=== PATIENT | female | born 1965 | race African-American/Black ===

== ENCOUNTER 2019-07-04 11:23 | Inpatient (IN) | payer OTHER ==
[2019-07-04 14:33] VITALS: BMI 27.3
--- NOTE | 2019-07-04 15:58 | HP ---
COWS - Scale Resting Pulse: 1= [place] 81-100 Sweatin= Chills/Flushing Restless Observation: 1= Difficult to Sit Still Pupil Size: 1= Pupils >than Normal Bone or Joint Aches: 2= Severe Diffuse Aches Runny Nose/ Eye Tearin= Runny Nose/Eyes GI Upset > 30mins: 0= None Tremor Observation: 4= Gross Tremor/Twitching Yawning Observation: 2= >3x During Session Anxiety or Irritability: 1=Feels Anxious/Irritable Goose Flesh Skin: 0=Smooth Skin COWS Score: 15 CIWA Score Nausea/Vomitin-Mild Nausea/No Vomiting Muscle Tremors: 3 Anxiety: 3 Agitation: 1-Slight > Activity Paroxysmal Sweats: 2 Orientation: 2-Disoriented Date<2 days Tacttile Disturbances: 1-Very Mild Itch/Numbness Auditory Disturbances: 0-None Visual Disturbances: 0-None Headache: 0-None Present CIWA-Ar Total Score: 13 - Admission Criteria OAS Guidelines: Admission for Medically Managed Detox: Requires at least one of the followin. CIWA greater than 12 2. Seizures within the past 24 hours 3. Delirium tremens within the past 24 hours 4. Hallucinations within the past 24 hours 5. Acute intervention needed for co occurring medical disorder 6. Acute intervention needed for co occurring psychiatric disorder 7. Severe withdrawal that cannot be handled at a lower level of care (continued vomiting, continued diarrhea, abnormal vital signs) requiring intravenous medication and/or fluids 8. Patient presents the following: CIWA greater than 12 Admission Criteria Met: Admission criteria met Admission ROS [facility] Chief Complaint: Mitali Lenz is presenting for alcohol and opiate use detox. Allergies/Adverse Reactions: Allergies Allergy/AdvReac Type Severity Reaction Status Date / Time No Known Allergies Allergy Verified 07/04/19 14:21 History of Present Illness: Mitali Lenz is a 53 year old female presenting for alcohol and heroin withdrawal. Latest use of heroin was this morning. 4 bags per day. Has been using this amount for the last 6 months. Prior to this had been using more. Most use was 6- 7 bags. Never had overdose. Denies falls. When does not use has diarrhea, vomiting, sweating. Longest period of sobriety was 7-8 years. Denies IVDU. Only uses intranasally. Denies mixing drugs. Has been on methadone program in the past, not currently on program. 1 week ago was on methadone when [place]. Alcohol use, last use was morning of this admission. 2 40oz beers per day, occasional liquor. Denies seizures, blackouts. Has had fall and head hit with prior intoxication. Longest period of sobriety was 8 years. Has been this facility in the past. 3 times at this facility. 5th time in total. Has been to rehab once and completed. Previous detox 1-2 years prior, not at this facility. Not sure about current plans after detox. Will talk to counselor. Utox: + for MTD, MOP, FEN, OXY Medical History: asthma, HTN Meds: nifedipine, albutrol, symbicort, singulair Surgical: Social: house with daughter. unemployed. SSI Family: Mother [place], Father cirrhosis Smokin cigarettes per day, 15-16 years - Ebola screening Have you traveled outside of the country in the last 21 days: No (N) Have you had contact with anyone from an Ebola affected area: No Do you have a fever: No - Review of Systems Constitutional: Chills, Night Sweats EENT: reports: Other (rhinnorhea) Respiratory: reports: Cough, Wheezing Cardiac: reports: No Symptoms Reported GI: reports: Nausea, Poor Appetite : reports: No Symptoms Reported Musculoskeletal: reports: Muscle Pain Integumentary: reports: No Symptoms Reported Neuro: reports: Tingling Endocrine: reports: No Symptoms Reported Hematology: reports: No Symptoms Reported Psychiatric: reports: Judgement Intact, Agitated, Anxious Patient History - Patient Medical History Hx Anemia: No Hx Asthma: Yes (Pt is on MDI.) Hx Chronic Obstructive Pulmonary Disease (COPD): No Hx Cancer: No Hx Cardiac Disorders: No Hx Congestive Heart Failure: No Hx Hypertension: Yes Hx Hypercholesterolemia: No Hx Pacemaker: No HX Cerebrovascular Accident: No Hx Seizures: No Hx Dementia: No Hx Diabetes: No Hx Gastrointestinal Disorders: No Hx Liver Disease: No Hx Genitourinary Disorders: No Hx Sexually Transmitted Disorders: No Hx Renal Disease (ESRD): No Hx Thyroid Disease: No Hx Human Immunodeficiency Virus (HIV): No Hx Hepatitis C: No Hx Depression: Yes (on meds) Hx Suicide Attempt: No Hx Bipolar Disorder: Yes Hx Schizophrenia: No - Patient Surgical History Past Surgical History: Yes Hx Neurologic Surgery: No Hx Cataract Extraction: No Hx Cardiac Surgery: No Hx Lung Surgery: No Hx Breast Surgery: No Hx Breast Biopsy: No Hx Abdominal Surgery: No Hx Appendectomy: No Hx Cholecystectomy: No Hx Genitourinary Surgery: No Hx Section: Yes (1998) Hx Orthopedic Surgery: No Anesthesia Reaction: No - PPD History Previous Implant?: Yes Documented Results: Negative w/o proof Date: 06/10/16 PPD to be Administered?: No - Reproductive History Patient is a Female of Child Bearing Age (11 -55 yrs old): Yes Last Menstrual Period: 11/25/18 Patient : No - Smoking Cessation Smoking history: Current every day smoker Have you smoked in the past 12 months: Yes Aproximately how many cigarettes per day: 7 Cigars Per Day: 0 Hx Chewing Tobacco Use: No Initiated information on smoking cessation: Yes 'Breaking Loose' booklet given: 07/04/19 - Substance & Tx. History Hx Alcohol Use: Yes Hx Substance Use: Yes Substance Use Type: Alcohol, Heroin Hx Substance Use Treatment: Yes - Substances abused Heroin Substance route: Inhalation Frequency: Daily Amount used: 3 to 4 bags Age of first use: 32 Date of last use: 07/04/19 Alcohol Substance route: Oral Frequency: Daily Amount used: 40 of 40 ounces of beer Age of first use: 12 Date of last use: 07/04/19 Admission Physical Exam S - Vital Signs Vital Signs: Vital Signs - 24 hr 07/04/19 14:21 Temperature 97.5 F L Pulse Rate 100 H Respiratory 16 Rate Blood Pressure 159/89 - Physical General Appearance: Yes: Disheveled HEENTM: Yes: EOMI, Hearing grossly Normal, Normocephalic, Normal Voice, ARELY Respiratory: Yes: Chest Non-Tender, No Accessory Muscle Use, Wheezing Neck: Yes: Within Normal Limits, No masses,lesions,Nodules Breast: Yes: Breast Exam Deferred Cardiology: Yes: Regular Rhythm, Regular Rate, S1, S2 Abdominal: Yes: Normal Bowel Sounds, Non Tender, Flat, Soft Genitourinary: Yes: Within Normal Limits Back: Yes: Normal Inspection Musculoskeletal: Yes: full range of Motion Extremities: Yes: Normal Capillary Refill, Normal Range of Motion, Swelling ( trace edema) Neurological: Yes: radiological metallurgist II-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 NML intact, Fully Oriented, Alert, Motor Strength 5/5, Normal Mood/Affect, Normal Response Integumentary: Yes: Normal Color, Dry, Warm - Diagnostic (1) Alcohol dependence with uncomplicated withdrawal Current Visit: No Status: Acute (2) Substance induced mood disorder Current Visit: No Status: Acute (3) Asthma Current Visit: No Status: Chronic Qualifiers: Asthma severity: mild persistent Asthma complication type: uncomplicated (4) Bipolar 1 disorder Current Visit: No Status: Chronic (5) HTN (hypertension) Current Visit: No Status: Chronic Qualifiers: Hypertension type: essential hypertension Qualified Code(s): I10 - Essential (primary) hypertension (6) Nicotine dependence Current Visit: No Status: Chronic Qualifiers: Nicotine product type: cigarettes Substance use status: uncomplicated Qualified Code(s): F17.210 - Nicotine dependence, cigarettes, uncomplicated (7) Opioid dependence with withdrawal Current Visit: No Status: Chronic (8) Substance or medication-induced sleep disorder, insomnia type Current Visit: No Status: Chronic Cleared for Admission S - Detox or Rehab [facility] Level of Care: Medically Managed Detox Regimen/Protocol: Methadone/Librium Breathalyzer - Breathalyzer Breathalyzer: 0 Urine Drug Screen - Test Device Lot number: [id number] Expiration date: 03/10/21 - Control Is test valid?: Yes - Results Drug screen NEGATIVE: No Urine drug screen results: FEN-Fentanyl, MOP-Opiates, OXY-Oxycodone, MTD- Methadone Inpatient Rehab Admission - Rehab Decision to Admit Inpatient rehab admission?: No
--- NOTE | 2019-07-04 16:35 | PN ---
Teaching Attending Note Name of Resident: Rahul Castillo ATTENDING PHYSICIAN STATEMENT I saw and evaluated the patient. I reviewed the resident's note and discussed the case with the resident. I agree with the resident's findings and plan as documented. SUBJECTIVE: 53 yo with h/o asthma, alcohol and heroin OUD, here for detox. Heroin 7-8 bags/day, no h/o OD alcohol- 2 40 oz/beer, no h/o seizures/black outs, OBJECTIVE: Vital Signs - 24 hr 07/04/19 14:21 Temperature 97.5 F L Pulse Rate 100 H Respiratory 16 Rate Blood Pressure 159/89 tremulous exp wheezing ASSESSMENT AND PLAN: heroin use disorder- methadone based detox protocol alcohol use disorder-librium detox protocol asthma- prn albuterol, nebulized Rx prn
[2019-07-04] MEDS ORDERED: ACETAMINOPHEN 325 MG TABLET (FP) PO PRN ×2 (16:41)
[2019-07-04] MEDS ORDERED: MAGNESIUM CITRATE 300 ML BOTTLE PO PRN (16:41)
[2019-07-04] MEDS ORDERED: MENTHOL/PHENOL 1 EACH UD MM PRN (16:41)
[2019-07-04] MEDS ORDERED: NICOTINE POLACRILEX 2 MG GUM BUC PRN (16:41)
[2019-07-04] MEDS ORDERED: BISMUTH SUBSALICYLATE 524 MG/30 ML UD PO PRN (16:41)
[2019-07-04] MEDS ORDERED: MAG HYDROX/AL HYDROX/SIMETH 30 ML UNIT-DOSE CUP PO PRN (16:41)
[2019-07-04] MEDS ORDERED: IBUPROFEN 400 MG TABLET (FP) PO PRN (16:41)
[2019-07-04] MEDS ORDERED: MAGNESIUM HYDROX 2400MG/30ML ORAL SUSPENSION 30 ML CUP PO PRN (16:41)
[2019-07-04] MEDS ORDERED: chlordiazePOXIDE HCL 25 MG CAPSULE PO PRN (16:41)
[2019-07-04] MEDS ORDERED: cloNIDine HCL 0.1 MG TABLET PO PRN (16:41)
[2019-07-04] MEDS ORDERED: ALBUTEROL SO4 8 GM HFA INHALER IH PRN (16:44)
[2019-07-04] MEDS ORDERED: PETROLATUM, WHITE 30 GM TUBE TP ONE (17:30)
[2019-07-04] MEDS ORDERED: METHADONE HCL 10 MG TABLET (FOR DETOX USE ONLY) PO ONE (17:30)
[2019-07-04] MEDS: chlordiazePOXIDE HCL 25 MG CAPSULE PO SCH ×2 (17:31→22:06)
[2019-07-04] MEDS ORDERED: ALBUTEROL SO4 0.083% IH SOL 2.5 MG/3 ML VIAL.NEB. NEB PRN (20:07)
[2019-07-04] MEDS: THIAMINE HCL 100 MG TABLET (FP) PO SCH (22:05)
[2019-07-04] MEDS: BUDESONIDE/FORMETEROL FUMARATE 80/4.5 mcg INHALER IH SCH (22:05)
[2019-07-04] MEDS: MONTELUKAST NA 10 MG TABLET PO SCH (22:06)
[2019-07-05] MEDS: chlordiazePOXIDE HCL 25 MG CAPSULE PO SCH ×4 (05:20→22:14)
[2019-07-05] MEDS ORDERED: METHADONE HCL 5 MG TABLET (FOR DETOX USE ONLY) PO ONE (10:00)
--- NOTE | 2019-07-05 10:04 | PN ---
[facility] CIWA - CIWA Score Nausea/Vomitin-Mild Nausea/No Vomiting Muscle Tremors: 2 Anxiety: 3 Agitation: 2 Paroxysmal Sweats: 1-Minimal Palms Moist Orientation: 1-Uncertain about Date Tacttile Disturbances: 0-None Auditory Disturbances: 0-None Visual Disturbances: 0-None Headache: 2-Mild CIWA-Ar Total Score: 12 BHS COWS - Scale Resting Pulse: 1= [place] 81-100 Sweatin= Chills/Flushing Restless Observation: 0= Sits Still Pupil Size: 0= Normal to Room Light Bone or Joint Aches: 1= Mild Discomfort Runny Nose/ Eye Tearin= Nasal Congestion GI Upset > 30mins: 2= Nausea/Diarrhea (no diarrhea) Tremor Observation of Outstretched Hands: 1= Tremor [place], Not Seen Yawning Observation: 0= None Anxiety or Irritability: 2=Irritable/Anxious Goose Flesh Skin: 3=Piloerection COWS Score: 12 S Progress Note (SOAP) Subjective: doing well with librium and methadone detox regimen ate breakfast mild nausea no vomiting tolerate food and fluid well resting on bed feeling tired informed medication assisted treatment program 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
[2019-07-05] MEDS: PRENATAL VITAMINS W/ FOLIC ACID TABLET (FP) PO SCH (10:14)
[2019-07-05] MEDS: NIFEdipine E.R 60 MG TABLET (UD) PO SCH (10:14)
[2019-07-05] MEDS: BUDESONIDE/FORMETEROL FUMARATE 80/4.5 mcg INHALER IH SCH ×2 (10:15→22:13)
--- NOTE | 2019-07-05 10:42 | EKG ---
Test Reason : Blood Pressure : / mmHG Vent. Rate : 083 BPM Atrial Rate : 083 BPM P-R Int : 128 ms QRS Dur : 092 ms QT Int : 376 ms P-R-T Axes : 076 076 070 degrees QTc Int : 441 ms NORMAL SINUS RHYTHM MINIMAL VOLTAGE CRITERIA FOR LVH, MAY BE NORMAL VARIANT BORDERLINE ECG NO PREVIOUS ECGS AVAILABLE Confirmed by MAURI DESAI MD ([id number]) on 07/05/2019 10:42:21 AM Referred By: Confirmed By:MAURI DESAI MD
[2019-07-05] MEDS: PETROLATUM, WHITE 30 GM TUBE TP SCH (11:13)
[2019-07-05 11:15] LABS: ALBUMIN 3.3 g/dl (3.4-5.0); BILIRUBIN,TOTAL 0.6 mg/dL (0.2-1); BLOOD UREA NITROGEN 15.8 mg/dL (7-18); CALCIUM 9.6 mg/dL (8.5-10.1); POTASSIUM 4.1 mmol/L (3.5-5.1); TOT PROT 6.6 g/dl (6.4-8.2)
[2019-07-05 11:17] LABS: HEMATOCRIT 36.5 % (32.4-45.2); HEMOGLOBIN 12.5 GM/dL (10.7-15.3); MCH 33.2 pg (25.7-33.7); MCHC 34.1 g/dl (32.0-36.0); MEAN CELL VOLUME 97.4 fl (80-96); MEAN PLT VOLUME 9.5 fl (7.5-11.1); PLATELET COUNT 268 K/MM3 (134-434); RBC 3.75 M/mm3 (3.60-5.2); RDW 13.2 % (11.6-15.6); WHITE BLOOD COUNT 4.3 K/mm3 (4.0-10.0)
--- NOTE | 2019-07-05 17:59 | CONSULT ---
[facility] Psychiatric Consult - Data Date of interview: 07/05/19 Admission source: [facility] Identifying data: Patient is a 53 year old single female, mother of two, uenmployed, domiciled, and is supported by [facility]. This is one of multiple admissions for patient. Patient admitted to for alcohol and opiate dependence. Substance Abuse History: - Smoking Cessation. Smoking history: Current every day smoker. Have you smoked in the past 12 months: Yes. Aproximately how many cigarettes per day: 7. Cigars Per Day: 0. Hx Chewing Tobacco Use: No. Initiated information on smoking cessation: Yes. 'Breaking Loose' booklet given : 07/04/19. - Substance & Tx. History. Hx Alcohol Use: Yes. Hx Substance Use : Yes. Substance Use Type: Alcohol, Heroin. Hx Substance Use Treatment: Yes. - Substances abused. Heroin. Substance route: Inhalation. Frequency: Daily. Amount used: 3 to 4 bags. Age of first use: 32. Date of last use: . Alcohol. Substance route: Oral. Frequency: Daily. Amount used: 40 of 40 ounces of beer. Age of first use: 12. Date of last use: 07/04/19 Medical History: asthma Psychiatric History: Patient denies history of psychiatric hospitalizations and suicide attempt. Stated that she was receiving outpatient care at [facility] seven months ago and was prescribed remeron 15mg + Klonopin (unknown dose). Self reports diagnosis of bipolar disorder. She reports noncompliance to treatment because of her history of substance abuse. At present she reports difficulty sleeping. Physical/Sexual Abuse/Trauma History: denies. Mental Status Exam - Mental Status Exam Alert and Oriented to: Time, Place, Person Cognitive Function: Good Patient Appearance: Well Groomed Mood: Withdrawn Affect: Mood Congruent Patient Behavior: Cooperative Speech Pattern: Appropriate Voice Loudness: Normal Thought Process: Goal Oriented Thought Disorder: Not Present Hallucinations: Denies Suicidal Ideation: Denies Homicidal Ideation: Denies Insight/Judgement: Poor Sleep: Poorly Appetite: Fair Muscle strength/Tone: Normal Gait/Station: Normal Psychiatric Findings - Problem List ([place] 1, 2,3) (1) Substance-induced sleep disorder Status: Acute (2) Alcohol dependence with uncomplicated withdrawal Status: Acute (3) Substance induced mood disorder Status: Acute (4) Opioid dependence with withdrawal Status: Acute - Initial Treatment Plan Initial Treatment Plan: Psychoeducation provided. Detoxification in progress. Will order Seroquel 25mg ( as per patient's request). Patient refusing to resume remeron. Benefits and side effects discussed. Verbal consent given.
[2019-07-05] MEDS: MONTELUKAST NA 10 MG TABLET PO SCH (22:14)
[2019-07-05] MEDS: MELATONIN 5 MG TABLETS PO PRN (22:14)
[2019-07-05] MEDS: THIAMINE HCL 100 MG TABLET (FP) PO SCH (22:14)
[2019-07-05] MEDS: QUEtiapine FUMARATE 25 MG TABLET (FP) PO SCH (22:14)
[2019-07-06] MEDS: chlordiazePOXIDE HCL 25 MG CAPSULE PO SCH ×4 (05:57→23:01)
[2019-07-06] MEDS ORDERED: METHADONE HCL 10 MG TABLET (FOR DETOX USE ONLY) PO ONE (10:00)
--- NOTE | 2019-07-06 10:11 | PN ---
[facility] CIWA - CIWA Score Nausea/Vomitin-Mild Nausea/No Vomiting Muscle Tremors: 2 Anxiety: 3 Agitation: 2 Paroxysmal Sweats: 1-Minimal Palms Moist Orientation: 0-Oriented Tacttile Disturbances: 0-None Auditory Disturbances: 0-None Visual Disturbances: 0-None Headache: 0-None Present CIWA-Ar Total Score: 9 BHS COWS - Scale Resting Pulse: 2= [place] 101-120 Sweatin= No chills or Flushing Restless Observation: 0= Sits Still Pupil Size: 0= Normal to Room Light Bone or Joint Aches: 1= Mild Discomfort Runny Nose/ Eye Tearin= Nasal Congestion GI Upset > 30mins: 2= Nausea/Diarrhea Tremor Observation of Outstretched Hands: 1= Tremor [place], Not Seen Yawning Observation: 1= 1-2x During Session Anxiety or Irritability: 1=Feels Anxious/Irritable Goose Flesh Skin: 0=Smooth Skin COWS Score: 9 [facility] Progress Note (SOAP) Subjective: chill tremor cold sweat discuss benefits of medication assisted treatment program important to carry narcan at all time Objective: 07/06/19 10:12 Vital Signs Temperature 96.6 F L 07/06/19 09:19 Pulse Rate 101 H 07/06/19 09:19 Respiratory Rate 20 07/06/19 09:19 Blood Pressure 140/84 07/06/19 09:19 O2 Sat by Pulse Oximetry (%) Laboratory Last Values WBC 4.3 K/mm3 (4.0-10.0) 07/05/19 07:45 RBC 3.75 M/mm3 (3.60-5.2) 07/05/19 07:45 Hgb 12.5 GM/dL (10.7-15.3) 07/05/19 07:45 Hct 36.5 % (32.4-45.2) 07/05/19 07:45 MCV 97.4 fl (80-96) H 07/05/19 07:45 MCH 33.2 pg (25.7-33.7) 07/05/19 07:45 MCHC 34.1 g/dl (32.0-36.0) 07/05/19 07:45 RDW 13.2 % (11.6-15.6) 07/05/19 07:45 Plt Count 268 K/MM3 (134-434) 07/05/19 07:45 MPV 9.5 fl (7.5-11.1) D 07/05/19 07:45 Sodium 140 mmol/L (136-145) 07/05/19 07:45 Potassium 4.1 mmol/L (3.5-5.1) 07/05/19 07:45 Chloride 105 mmol/L (98-107) 07/05/19 07:45 Carbon Dioxide 29 mmol/L (21-32) 07/05/19 07:45 Anion Gap 6 MMOL/L (8-16) L 07/05/19 07:45 BUN 15.8 mg/dL (7-18) 07/05/19 07:45 Creatinine 1.0 mg/dL (0.55-1.3) 07/05/19 07:45 Est GFR (CKD-EPI)AfAm 73.97 07/05/19 07:45 Est GFR (CKD-EPI)NonAf 63.82 07/05/19 07:45 Random Glucose 83 mg/dL (74-106) 07/05/19 07:45 Calcium 9.6 mg/dL (8.5-10.1) 07/05/19 07:45 Total Bilirubin 0.6 mg/dL (0.2-1) 07/05/19 07:45 AST 14 U/L (15-37) L 07/05/19 07:45 ALT 18 U/L (13-61) 07/05/19 07:45 Alkaline Phosphatase 106 U/L (45-117) 07/05/19 07:45 Total Protein 6.6 g/dl (6.4-8.2) 07/05/19 07:45 Albumin 3.3 g/dl (3.4-5.0) L 07/05/19 07:45 RPR Titer Nonreactive (NONREACTIVE) 07/05/19 07:45 lab noted 07/06/19 10:12 one isolated bp elevation Assessment: 07/06/19 10:13 alcohol and opiate withdrawal sx Plan: continue librium and methadone detox regimen
[2019-07-06] MEDS: NIFEdipine E.R 60 MG TABLET (UD) PO SCH (10:28)
[2019-07-06] MEDS: BUDESONIDE/FORMETEROL FUMARATE 80/4.5 mcg INHALER IH SCH ×2 (10:28→22:58)
[2019-07-06] MEDS: PRENATAL VITAMINS W/ FOLIC ACID TABLET (FP) PO SCH (10:28)
[2019-07-06] MEDS: hydrOXYzine PAMOATE 25 MG CAPSULE (FP) PO PRN (10:29)
[2019-07-06] MEDS: PETROLATUM, WHITE 30 GM TUBE TP SCH (11:00)
[2019-07-06] MEDS ORDERED: ONDANSETRON *ODT* 4 MG TABLET SL ONE (11:14)
[2019-07-06] MEDS ORDERED: TRIMETHOBENZAMIDE HCL 200MG/2ML INJ IM PRN (17:19)
[2019-07-06] MEDS: ONDANSETRON *ODT* 4 MG TABLET SL PRN (17:31)
[2019-07-06] MEDS: THIAMINE HCL 100 MG TABLET (FP) PO SCH (23:00)
[2019-07-06] MEDS: QUEtiapine FUMARATE 25 MG TABLET (FP) PO SCH (23:00)
[2019-07-06] MEDS: MONTELUKAST NA 10 MG TABLET PO SCH (23:00)
[2019-07-07] MEDS ORDERED: chlordiazePOXIDE HCL 10 MG CAPSULE PO PRN
[2019-07-07] MEDS: hydrOXYzine PAMOATE 25 MG CAPSULE (FP) PO PRN (01:39)
[2019-07-07] MEDS: METHOCARBAMOL 500 MG TABLET PO PRN ×2 (03:30→09:47)
[2019-07-07] MEDS: ONDANSETRON *ODT* 4 MG TABLET SL PRN (03:30)
[2019-07-07] MEDS ORDERED: METHADONE HCL 5 MG TABLET (FOR DETOX USE ONLY) PO ONE ×2 (06:00→10:25)
[2019-07-07] MEDS ORDERED: METHADONE HCL 5 MG TABLET (FOR DETOX USE ONLY) ONE (06:24)
[2019-07-07] MEDS: chlordiazePOXIDE HCL 10 MG CAPSULE PO SCH ×4 (06:30→22:21)
[2019-07-07] MEDS: NIFEdipine E.R 60 MG TABLET (UD) PO SCH (09:45)
[2019-07-07] MEDS: PRENATAL VITAMINS W/ FOLIC ACID TABLET (FP) PO SCH (09:45)
[2019-07-07] MEDS: BUDESONIDE/FORMETEROL FUMARATE 80/4.5 mcg INHALER IH SCH ×2 (09:45→22:21)
[2019-07-07] MEDS ORDERED: cloNIDine HCL 0.1 MG TABLET PO ONE (10:25)
[2019-07-07] MEDS: PETROLATUM, WHITE 30 GM TUBE TP SCH (10:38)
--- NOTE | 2019-07-07 17:37 | PN ---
S CIWA - CIWA Score Nausea/Vomitin Muscle Tremors: 2 Anxiety: 4-Mod. Anxious/Guarded Agitation: 2 Paroxysmal Sweats: 2 Orientation: 0-Oriented Tacttile Disturbances: 0-None Auditory Disturbances: 0-None Visual Disturbances: 0-None Headache: 0-None Present CIWA-Ar Total Score: 15 BHS COWS - Scale Resting Pulse: 2= [place] 101-120 Sweatin= Chills/Flushing Restless Observation: 1= Difficult to Sit Still Pupil Size: 0= Normal to Room Light Bone or Joint Aches: 2= Severe Diffuse Aches Runny Nose/ Eye Tearin= None GI Upset > 30mins: 3= Vomiting/Diarrhea Tremor Observation of Outstretched Hands: 2= Slight Tremor Visible Yawning Observation: 1= 1-2x During Session Anxiety or Irritability: 2=Irritable/Anxious Goose Flesh Skin: 3=Piloerection COWS Score: 17 S Progress Note (SOAP) Subjective: Anxious, Chills, Sweating, Hot / Cold Sensations, Body Aches, Diarrhea, Vomiting. Objective: PATIENT A & O X 3, OBSERVED AMBULATING ON DETOX UNIT UNASSISTED. IN NO ACUTE DISTRESS. 07/07/19 17:39 Vital Signs Temperature 97.1 F L 07/07/19 17:35 Pulse Rate 108 H 07/07/19 17:35 Respiratory Rate 16 07/07/19 17:35 Blood Pressure 97/70 07/07/19 17:35 O2 Sat by Pulse Oximetry (%) Laboratory Tests 07/05/19 07/05/19 07/05/19 07:45 07:45 07:45 WBC 4.3 RBC 3.75 Hgb 12.5 Hct 36.5 MCV 97.4 H MCH 33.2 MCHC 34.1 RDW 13.2 Plt Count 268 MPV 9.5 D Sodium 140 Potassium 4.1 Chloride 105 Carbon Dioxide 29 Anion Gap 6 L BUN 15.8 Creatinine 1.0 Est GFR (CKD-EPI)AfAm 73.97 Est GFR (CKD-EPI)NonAf 63.82 Random Glucose 83 Calcium 9.6 Total Bilirubin 0.6 AST 14 L ALT 18 Alkaline Phosphatase 106 Total Protein 6.6 Albumin 3.3 L RPR Titer Nonreactive TB (QFT) Incubation TB Test (QFT) Nil TB Test (QFT) Mitogen TB Test (QFT) Antigen TB Test (QFT) TB Positive Criteria 07/05/19 07:45 WBC RBC Hgb Hct MCV MCH MCHC RDW Plt Count MPV Sodium Potassium Chloride Carbon Dioxide Anion Gap BUN Creatinine Est GFR (CKD-EPI)AfAm Est GFR (CKD-EPI)NonAf Random Glucose Calcium Total Bilirubin AST ALT Alkaline Phosphatase Total Protein Albumin RPR Titer TB (QFT) Incubation TB Test (QFT) Nil 0.04 TB Test (QFT) Mitogen >10.00 TB Test (QFT) Antigen 0.04 TB Test (QFT) Negative TB Positive Criteria LABS NOTED. Assessment: 07/07/19 17:40 WITHDRAWAL SYMPTOMS. HYPERTENSION. 07/07/19 17:42 Plan: CONTINUE DETOX. INCREASE DAILY PO WATER INTAKE. DUE TO SEVERITY OF GENERAL WITHDRAWAL SYMPTOMS, ADDITIONAL DOSES OF METHADONE ( 5 MG) ORDERED x 1 TODAY, THEN X 1 TOMORROW. CLONIDINE, 0.1 MG PO X 1 DOSE ORDERED FOR SEVERE WITHDRAWAL AND ELEVATED BLOOD PRESSURE. PRN TIGAN IM FOR NAUSEA / VOMITING. PRN PEPTO-BISMOL PO FOR DIARRHEA.
[2019-07-07] MEDS: QUEtiapine FUMARATE 25 MG TABLET (FP) PO SCH (22:21)
[2019-07-07] MEDS: THIAMINE HCL 100 MG TABLET (FP) PO SCH (22:21)
[2019-07-07] MEDS: MONTELUKAST NA 10 MG TABLET PO SCH (22:21)
[2019-07-08] MEDS: chlordiazePOXIDE HCL 10 MG CAPSULE PO SCH ×2 (05:40→17:15)
[2019-07-08] MEDS ORDERED: METHADONE HCL 5 MG TABLET (FOR DETOX USE ONLY) PO ONE (06:00)
[2019-07-08] MEDS ORDERED: METHADONE HCL 5 MG TABLET (FOR DETOX USE ONLY) PO SCH (06:00)
[2019-07-08] MEDS: NIFEdipine E.R 60 MG TABLET (UD) PO SCH (10:37)
[2019-07-08] MEDS: BUDESONIDE/FORMETEROL FUMARATE 80/4.5 mcg INHALER IH SCH ×2 (10:37→21:34)
[2019-07-08] MEDS: PRENATAL VITAMINS W/ FOLIC ACID TABLET (FP) PO SCH (10:37)
[2019-07-08] MEDS: PETROLATUM, WHITE 30 GM TUBE TP SCH (10:37)
--- NOTE | 2019-07-08 18:12 | PN ---
[facility] CIWA - CIWA Score Nausea/Vomitin-No Nausea/No Vomiting Muscle Tremors: None Anxiety: 3 Agitation: 2 Paroxysmal Sweats: 2 Orientation: 0-Oriented Tacttile Disturbances: 1-Very Mild Itch/Numbness Auditory Disturbances: 0-None Visual Disturbances: 1-Very Mild Sensitivity Headache: 0-None Present CIWA-Ar Total Score: 9 BHS COWS - Scale Resting Pulse: 1= [place] 81-100 Sweatin= Chills/Flushing Restless Observation: 1= Difficult to Sit Still Pupil Size: 0= Normal to Room Light Bone or Joint Aches: 1= Mild Discomfort Runny Nose/ Eye Tearin= None GI Upset > 30mins: 0= None Tremor Observation of Outstretched Hands: 0= None Yawning Observation: 1= 1-2x During Session Anxiety or Irritability: 2=Irritable/Anxious Goose Flesh Skin: 3=Piloerection COWS Score: 10 BHS Progress Note (SOAP) Subjective: Anxious, Sweating, Body Aches. Patient reports That Current Withdrawal / Detox Symptoms have improved considerably since yesterday. Objective: PATIENT A & O X 3, OBSERVED AMBULATING ON DETOX UNIT UNASSISTED. IN NO ACUTE DISTRESS. 07/08/19 18:13 Vital Signs Temperature 99.6 F 07/08/19 17:41 Pulse Rate 98 H 07/08/19 17:41 Respiratory Rate 18 07/08/19 17:41 Blood Pressure 102/76 07/08/19 17:41 O2 Sat by Pulse Oximetry (%) Laboratory Tests 07/05/19 07/05/19 07/05/19 07:45 07:45 07:45 WBC 4.3 RBC 3.75 Hgb 12.5 Hct 36.5 MCV 97.4 H MCH 33.2 MCHC 34.1 RDW 13.2 Plt Count 268 MPV 9.5 D Sodium 140 Potassium 4.1 Chloride 105 Carbon Dioxide 29 Anion Gap 6 L BUN 15.8 Creatinine 1.0 Est GFR (CKD-EPI)AfAm 73.97 Est GFR (CKD-EPI)NonAf 63.82 Random Glucose 83 Calcium 9.6 Total Bilirubin 0.6 AST 14 L ALT 18 Alkaline Phosphatase 106 Total Protein 6.6 Albumin 3.3 L RPR Titer Nonreactive TB (QFT) Incubation TB Test (QFT) Nil TB Test (QFT) Mitogen TB Test (QFT) Antigen TB Test (QFT) TB Positive Criteria 07/05/19 07:45 WBC RBC Hgb Hct MCV MCH MCHC RDW Plt Count MPV Sodium Potassium Chloride Carbon Dioxide Anion Gap BUN Creatinine Est GFR (CKD-EPI)AfAm Est GFR (CKD-EPI)NonAf Random Glucose Calcium Total Bilirubin AST ALT Alkaline Phosphatase Total Protein Albumin RPR Titer TB (QFT) Incubation TB Test (QFT) Nil 0.04 TB Test (QFT) Mitogen >10.00 TB Test (QFT) Antigen 0.04 TB Test (QFT) Negative TB Positive Criteria LABS NOTED. Assessment: 07/08/19 18:14 WITHDRAWAL SYMPTOMS. Plan: CONTINUE DETOX. PATIENT SCHEDULED FOR DISCHARGE FROM DETOX UNIT TOMORROW.
[2019-07-08] MEDS: QUEtiapine FUMARATE 25 MG TABLET (FP) PO SCH (21:34)
[2019-07-08] MEDS: MONTELUKAST NA 10 MG TABLET PO SCH (21:34)
[2019-07-08] MEDS: THIAMINE HCL 100 MG TABLET (FP) PO SCH (21:34)
[2019-07-08] MEDS: MELATONIN 5 MG TABLETS PO PRN (21:35)
[2019-07-09] MEDS ORDERED: chlordiazePOXIDE HCL 10 MG CAPSULE PO ONE (05:00)
[2019-07-09 06:26] VITALS: BP 95/69; PULSE 85; TEMP 97
--- NOTE | 2019-07-09 13:44 | DS ---
[facility] Detox Discharge Summary Admission Date: 07/04/19 Discharge Date: 07/09/19 - History Present History: Alcohol Dependence, Opioid Dependence Additional Comments: 53 years old female admitted on 07/04/19 for alcohol and opiate withdrawal sx management patient left the detox unit around 7 am today I have not assessed nor evaluated the patient before discharged - Physical Exam Results Vital Signs: Vital Signs Temperature 97 F L 07/09/19 06:25 Pulse Rate 85 07/09/19 06:25 Respiratory Rate 18 07/09/19 06:25 Blood Pressure 95/69 07/09/19 06:25 O2 Sat by Pulse Oximetry (%) Pertinent Admission Physical Exam Findings: alcohol and opiate withdrawal sx Laboratory Last Values WBC 4.3 K/mm3 (4.0-10.0) 07/05/19 07:45 RBC 3.75 M/mm3 (3.60-5.2) 07/05/19 07:45 Hgb 12.5 GM/dL (10.7-15.3) 07/05/19 07:45 Hct 36.5 % (32.4-45.2) 07/05/19 07:45 MCV 97.4 fl (80-96) H 07/05/19 07:45 MCH 33.2 pg (25.7-33.7) 07/05/19 07:45 MCHC 34.1 g/dl (32.0-36.0) 07/05/19 07:45 RDW 13.2 % (11.6-15.6) 07/05/19 07:45 Plt Count 268 K/MM3 (134-434) 07/05/19 07:45 MPV 9.5 fl (7.5-11.1) D 07/05/19 07:45 Sodium 140 mmol/L (136-145) 07/05/19 07:45 Potassium 4.1 mmol/L (3.5-5.1) 07/05/19 07:45 Chloride 105 mmol/L (98-107) 07/05/19 07:45 Carbon Dioxide 29 mmol/L (21-32) 07/05/19 07:45 Anion Gap 6 MMOL/L (8-16) L 07/05/19 07:45 BUN 15.8 mg/dL (7-18) 07/05/19 07:45 Creatinine 1.0 mg/dL (0.55-1.3) 07/05/19 07:45 Est GFR (CKD-EPI)AfAm 73.97 07/05/19 07:45 Est GFR (CKD-EPI)NonAf 63.82 07/05/19 07:45 Random Glucose 83 mg/dL (74-106) 07/05/19 07:45 Calcium 9.6 mg/dL (8.5-10.1) 07/05/19 07:45 Total Bilirubin 0.6 mg/dL (0.2-1) 07/05/19 07:45 AST 14 U/L (15-37) L 07/05/19 07:45 ALT 18 U/L (13-61) 07/05/19 07:45 Alkaline Phosphatase 106 U/L (45-117) 07/05/19 07:45 Total Protein 6.6 g/dl (6.4-8.2) 07/05/19 07:45 Albumin 3.3 g/dl (3.4-5.0) L 07/05/19 07:45 RPR Titer Nonreactive (NONREACTIVE) 07/05/19 07:45 TB (QFT) Incubation (.) 07/05/19 07:45 TB Test (QFT) Nil 0.04 IU/mL (.) 07/05/19 07:45 TB Test (QFT) Mitogen >10.00 IU/mL (.) 07/05/19 07:45 TB Test (QFT) Antigen 0.04 IU/mL (.) 07/05/19 07:45 TB Test (QFT) Negative (Negative) 07/05/19 07:45 TB Positive Criteria (.) 07/05/19 07:45 lab noted - Treatment Hospital Course: Detox Protocol Followed, Detoxed Safely, Responded well, Discharged Condition Good (nursing report), Rehab Referral Accepted Patient has Accepted a Rehab Referral to: [facility] - Medication Discharge Medications: Ambulatory Orders Montelukast Na [Singulair -] 10 mg PO HS 06/08/16 Mirtazapine [Remeron -] 15 mg PO HS #30 tablet 06/09/16 Albuterol Sulfate Inhaler - [Ventolin HFA Inhaler -] 2 inh PO Q4H PRN #1 inhaler 10/01/16 Budesonide/Formeterol Fumarate [SYMBICORT 80/4.5mcg -] 1 puff IH BID #1 inhaler 10/01/16 Montelukast Na [Singulair -] 10 mg PO HS #1 tablet 10/01/16 Nifedipine ER [Procardia XL -] 60 mg PO DAILY #30 tab.er.24 10/01/16 Naloxone HCl [Narcan] 4 mg NS ASDIR PRN #1 spray 07/05/19 - Diagnosis (1) Alcohol dependence with uncomplicated withdrawal Status: Acute (2) Opioid dependence with withdrawal Status: Acute (3) Substance induced mood disorder Status: Suspected (4) Asthma Status: Chronic Qualifiers: Asthma severity: mild Asthma persistence: intermittent Asthma complication type: uncomplicated Qualified Code(s): J45.20 - Mild intermittent asthma, uncomplicated (5) Bipolar 1 disorder Status: Suspected (6) HTN (hypertension) Status: Chronic Qualifiers: Hypertension type: essential hypertension Qualified Code(s): I10 - Essential (primary) hypertension (7) Nicotine dependence Status: Acute Qualifiers: Nicotine product type: cigarettes Substance use status: in withdrawal Qualified Code(s): F17.213 - Nicotine dependence, cigarettes, with withdrawal - AMA Did Patient Leave Against Medical Advice: No
== END 2019-07-09 06:48 | disposition home or self-care (01) | DRG 773 ==
LOC: YASAS 11:23 → Y3N 16:48
PROVIDERS: ADMIT Surgery; ATTEND Surgery
PROC: HZ2ZZZZ Detoxification Services for Substance Abuse Treatment (ICD-10-PCS; principal; 2019-07-04)
DX: F11.23 Opioid dependence with withdrawal (principal); F10.230 Alcohol dependence with withdrawal, uncomplicated; F17.210 Nicotine dependence, cigarettes, uncomplicated; F19.24 Other psychoactive substance dependence with psychoactive substance-induced mood disorder; F19.282 Other psychoactive substance dependence with psychoactive substance-induced sleep disorder; F31.89 Other bipolar disorder; I10 Essential (primary) hypertension; J45.20 Mild intermittent asthma, uncomplicated; R25.1 Tremor, unspecified
CPT/HCPCS: 36415; 80053; 85027; 86480; 86593; 93005; 93010; J0735; Q0162